=== PATIENT | male | born 1990 | race Native Hawaiian/Other Pacific Islander ===

== ENCOUNTER 2019-03-18 01:44 | Emergency (ER) | payer SELFPAY ==
[2019-03-18 02:13] VITALS: BMI 60.3
[2019-03-18] MEDS ORDERED: Sodium Chloride 0.9% 1,000 ML IV ONE ×2 (02:14→09:50)
--- NOTE | 2019-03-18 02:27 | C.PDOC ---
History Of Present Illness 29-year-old male is brought to the ED by friend for evaluation of acute alcohol intoxication. As per friend, patient was excessively drinking for his birthday tonight. His friends states that patient drank an entire bottle of champagne and an entire bottle of vodka. They were in [place] and took an Uber back to his home. After reaching home, patient continued having episodes of vomiting and had some more episodes after arriving in the ED. His friend also notes that patient had hit his head against a glass window. Denies glass breakage. Additional information limited secondary to patient being intoxicated. Time Seen by Provider: 03/18/19 01:56 Chief Complaint (Nursing): Substance Abuse History Per: Other (friend ) History/Exam Limitations: intoxication Onset/Duration Of Symptoms: Hrs Current Symptoms Are (Timing): Still Present Modifying Factor(s): Alcohol Additional History Per: Patient, Friend Past Medical History Reviewed: Historical Data, Nursing Documentation, Vital Signs Vital Signs: Last Vital Signs Temp 96.9 F L 03/18/19 02:15 Pulse 85 03/18/19 02:15 Resp 14 03/18/19 02:15 BP 132/73 03/18/19 02:15 Pulse Ox 99 03/18/19 02:15 Primary Care Provider: FAMILY PROVIDER,NO - Medical History PMH: No Chronic Diseases Surgical History: No Surg Hx Family History: States: Unknown Family Hx - Social History Hx Alcohol Use: Yes Hx Substance Use: No - Immunization History Hx Tetanus Toxoid Vaccination: No Hx Influenza Vaccination: No Review Of Systems Review Of Systems: ROS cannot be obtained secondary to pt's inabilty to answer questions. Physical Exam - Physical Exam Appears: Non-toxic, Other (visibly intoxicated, actively vomiting alcohol and stomach contents ) Skin: Normal Color, Warm, No Rash, Other (abrasions to left posterior arm, over tricep and to left lateral torso. no obvious signs of trauma to the head and neck ) Head: Atraumatic, Normacephalic Eye(s): bilateral: Normal Inspection (no scleral icterus ), PERRL, EOMI Ear(s): Bilateral: Normal (no drainage ) Nose: Normal, No Deformity, No Tenderness, No Septal Hematoma Oral Mucosa: Moist Neck: Normal ROM, No Midline Cervical Tenderness, No Paracervical Tenderness, Supple Chest: Symmetrical, No Deformity, No Tenderness Cardiovascular: Rhythm Regular Respiratory: No Accessory Muscle Use, Other (normal inspiratory effort ) Gastrointestinal/Abdominal: Soft, No Tenderness Extremity: Normal ROM Extremity: Bilateral: Atraumatic Neurological/Psych: Other (unresponsive to verbal stimuli, responsive to painful stimuli ) ED Course And Treatment - Laboratory Results Result Diagrams: 03/18/19 02:29 03/18/19 02:29 O2 Sat by Pulse Oximetry: 99 (on RA ) Pulse Ox Interpretation: Normal - CT Scan/US CT Head Other Rad Studies (CT/US): Read By Radiologist, Radiology Report Reviewed CT/US Interpretation: CT SCAN OF THE BRAIN WITHOUT IV CONTRAST. CLINICAL INDICATION: Substance abuse. TECHNIQUE: Axial and reformatted sagittal and coronal images of the brain obtained without IV contrast administration. Normal size of the ventricles and extra-axial spaces for the patient's age. Normal white matter tracts of the supratentorial brain. Normal basal ganglia and thalami. Normal brainstem. Normal cerebellum. There is no demonstrated extra- axial, intraparenchymal, or intraventricular hemorrhage. There are no findings of an acute ischemic infarction. Normal calvarium. There is no demonstrated fracture. Normal soft tissue structures. Normal visualized paranasal sinuses. IMPRESSION: Normal unenhanced CT scan of the brain. Progress Note: patient awoke to urinate around 530am, still very intoxicated. more fluids given. Medical Decision Making Medical Decision Making: Progress: Bloodwork and CT Head ordered and reviewed. IV Fluids given. Disposition - Disposition Disposition Time: 06:52 Condition: STABLE Forms: [facility] (Persian) - Clinical Impression Clinical Impression: Alcohol intoxication - PA / OPS MANAGER / Resident Statement MD/DO has reviewed & agrees with the documentation as recorded. - Scribe Statement The provider has reviewed the documentation as recorded by the Scribe (Ashley Trejo) All medical record entries made by the Scribe were at my direction and personally dictated by me. I have reviewed the chart and agree that the record accurately reflects my personal performance of the history, physical exam, medical decision making, and the department course for this patient. I have also personally directed, reviewed, and agree with the discharge instructions and disposition. Physician Patient Turnover Patient Signed Over To: Alexa Hernadez (pending sobriety)
[2019-03-18 02:33] LABS: BASO % 0.2 % (0.0-2.0); EOS % 0.2 % (0.0-4.0); HEMOGLOBIN 16.8 g/dL (12.0-18.0); LYMPH # 1.7 K/uL (1.0-4.3); LYMPH % 15.7 % (20.0-40.0); MEAN CELL VOLUME 94.3 fL (80.0-94.0); MEAN CORPUSCULAR HEMOGLOBIN 31.7 pg (27.0-31.0); MEAN CORPUSCULAR HGB CONC 33.6 g/dL (33.0-37.0); MONO # 0.3 K/uL (0.0-0.8); MONO % 2.6 % (0.0-10.0); NEUT # 8.7 K/uL (1.8-7.0); NEUT % 81.3 % (50.0-75.0); RBC 5.3 Mil/uL (4.40-5.90); RED CELL DISTRIBUTION WIDTH 12.8 % (11.5-14.5); WHITE BLOOD COUNT 10.7 K/uL (4.8-10.8)
[2019-03-18 02:45] LABS: BLOOD UREA NITROGEN 20 mg/dL (9-20); CALCIUM 8.7 mg/dl (8.6-10.4); GFR NON-AFRICAN AMERICAN > 60
[2019-03-18 02:46] LABS: ALB/GLOB RATIO 1.9 (1.0-2.1); ALBUMIN 5.6 g/dL (3.5-5.0); ALT/SGPT 15 U/L (21-72); AST/SGOT 54 U/L (17-59)
[2019-03-18 02:52] LABS: BARBITURATES, UR NEGATIVE (NEGATIVE); BENZODIAZEPINES, UR NEGATIVE (NEGATIVE); OPIATES, UR NEGATIVE (NEGATIVE); PHENCYCLIDINE, UR NEGATIVE (NEGATIVE)
[2019-03-18] MEDS ORDERED: Lactated Ringer's 1,000 ML IV ONE (06:49)
[2019-03-18] MEDS ORDERED: Lactated Ringer's 1,000 ML ONE (06:51)
--- NOTE | 2019-03-18 07:28 | CT ---
Date of service: 03/18/2019 PROCEDURE: CT HEAD WITHOUT CONTRAST. HISTORY: injury COMPARISON: None available. TECHNIQUE: Axial computed tomography images were obtained through the head/brain without intravenous contrast. Radiation dose: Total exam DLP = 1375.86 mGy-cm. This CT exam was performed using one or more of the following dose reduction techniques: Automated exposure control, adjustment of the mA and/or kV according to patient size, and/or use of iterative reconstruction technique. FINDINGS: HEMORRHAGE: No intracranial hemorrhage. BRAIN: No mass effect or edema. No atrophy or chronic microvascular ischemic changes. VENTRICLES: Unremarkable. No hydrocephalus. CALVARIUM: Unremarkable. PARANASAL SINUSES: Unremarkable as visualized. No significant inflammatory changes. MASTOID AIR CELLS: Unremarkable as visualized. No inflammatory changes. OTHER FINDINGS: None. IMPRESSION: No evidence of acute intracranial hemorrhage mass effect or midline shift. Preliminary report was submitted by [facility] Radiology contains concordant findings.
[2019-03-18] MEDS ORDERED: Sodium Chloride 0.9% 1,000 ML ONE (09:52)
[2019-03-18 12:17] VITALS: BP 110/60; PULSE 99; TEMP 98; O2SAT 100
[2019-03-18 12:18] VITALS: RESP 17
--- NOTE | 2019-03-20 19:50 | CARD ---
APPROVED REPORT Date of service: 03/18/2019 EKG Measurement Heart [id number] <Conclusion> Normal sinus rhythm Normal ECG
== END 2019-03-18 12:17 | disposition home or self-care (01) ==
LOC: C.ER 01:44
DX: F10.129 Alcohol abuse with intoxication, unspecified (principal); Y90.8 Blood alcohol level of 240 mg/100 ml or more
CPT/HCPCS: 70450; 80053; 82948; 85025; 93005; 96360; 96361; 99285; G0480; J7030; J7120